=== PATIENT | male | born 1985 | race Caucasian/White ===

== ENCOUNTER 2016-08-17 12:44 | Emergency (ER) | payer SELFPAY ==
--- NOTE | 2016-08-23 23:42 | ER ---
ADMIT: 08/17/2016 RM/LOC: ER [facility] MR#: [id number] [address] [place], [place] [id number] [address] [place] [address] [facility] Emergency Room Report SEX: M AGE: 31 : 1985 DATE: 08/17/2016 TIME: 12:44 Please refer to my T-sheet for complete H and P. Briefly, patient is a 31- year-old, comes in with low back pain. He says he has a known history of surgery years ago. He slipped [place] fell [place] [address] [place]. He has been having pain ever since. Rates it 09/03. He has missed work 2 days. PHYSICAL EXAMINATION: VITAL SIGNS: Stable. BACK: He has a postop incision where he had a diskectomy. he states he has pain in the lower lumbar region. No gross deformity. Neurovascularly intact distally. EMERGENCY DEPARTMENT COURSE: X-ray of his L-spine was negative. I asked him anything for pain, did not at that time. He is ready for discharge. ASSESSMENT: Low back sprain status post fall. PLAN: [employer], I wrote him a script. Return if worse. Follow up with Dr. Blanc this week. Hugh Trinh MD/ zayra JOB #: [id number] CC: Hugh Trinh MD, Attending Physician
== END 2016-08-17 14:20 | disposition home or self-care (01) ==
LOC: ER 12:44
DX: S39.012A Strain of muscle, fascia and tendon of lower back, initial encounter (principal); I10 Essential (primary) hypertension; F17.210 Nicotine dependence, cigarettes, uncomplicated; W19.XXXA Unspecified fall, initial encounter